=== PATIENT | female | born 1985 | race Caucasian/White ===

== ENCOUNTER 2020-11-16 11:03 | Emergency (ER) | payer SELFPAY ==
[2020-11-16 12:02] LABS: #Basophils 0.1 thou/uL (0.0-0.2); #Eosinphils 0.1 thou/uL (0.0-0.7); #Lymphocytes 1.6 thou/uL (1.20-3.40); #Monocytes 0.9 thou/uL (0.11-0.59); #Neutrophils 11.1 thou/uL (1.40-6.50); %Basophils 0.8 % (0.0-1.0); %Eosinophils 0.4 % (0.0-10.0); %Lymphocytes 11.8 % (21.0-51.0); %Monocytes 6.4 % (0.0-10.0); %Neutrophils 80.6 % (42.0-75.0); Hemoglobin 12.7 g/dL (12.0-16.0); Mean Corpuscular HGB CONC 31.4 g/dL (32.0-36.0); Mean Corpuscular Hemoglobin 27.9 pg (27.0-31.0); Mean Corpuscular Volume 88.9 fL (78.0-98.0); Platelet Count 363 thou/uL (130-400); RBC Distribution Width 12.3 % (11.5-14.5); Red Blood Cell (RBC) Count 4.54 mill/uL (4.20-5.40); White Blood Cell (WBC) Count 13.8 thou/uL (4.8-10.8)
[2020-11-16 12:05] LABS: Pregnancy Test - Urine (BHCG) Negative (Negative); Pregu Control Background? CLEAR/WHITE (CLR/WHITE); Pregu Control Bar Appear? YES (CONTROL BAR); Specific Gravity 1.027 (1.002-1.036)
[2020-11-16 12:06] LABS: Bilirubin Small (Negative); Blood, Urine Large (Negative); Clarity Cloudy (Clear); Glucose, Urine (Dipstick) Negative (Negative); Ketone, Urine 40 mg/dL (Negative); Leukocyte Large (Negative); Nitrite Positive (Negative); Protein, Urine (Dipstick) > or equal to 300 mg/dL (Neg-Trace); Specific Gravity, Urine 1.027 (1.002-1.036)
[2020-11-16 12:12] LABS: WBC/HPF Greater Than 50 HPF (0-3)
[2020-11-16 12:13] LABS: Bacteria/HPF 4+ HPF (None Seen); RBC/HPF Greater than 50 HPF (0-3)
[2020-11-16 12:18] LABS: ALT (SGPT) 12 U/L (8-55); AST (SGOT) 14 U/L (5-34); Albumin 4.1 g/dL (3.5-5.0); Alkaline Phosphatase 74 U/L (40-110); Anion Gap 16 mmol/L (10-20); BUN (Urea Nitrogen) 10 mg/dL (7.0-18.7); Bilirubin, Total 0.5 mg/dL (0.2-1.2); CRP (Inflammatory) 12.46 mg/dL (= or < 0.5); Calc. Creatinine Clearance 0 mL/min (70-130); Calcium 9.2 mg/dL (7.8-10.44); Carbon Dioxide 23 mmol/L (22-29); Chloride 104 mmol/L (98-107); Globulin 3.6 g/dL (2.4-3.5); Glucose 99 mg/dL (70-105); Protein, Total 7.7 g/dL (6.0-8.3); Sodium 139 mmol/L (136-145)
[2020-11-16 12:22] LABS: Amphetamine Not Detected (NotDetected); Barbiturates Screen Not Detected (NotDetected); Benzodiazepine Screen Not Detected (NotDetected); Cocaine Metabolite Screen Not Detected (NotDetected); Medtox Control Line Valid? VALID (VALID); Methadone Not Detected (NotDetected); Methamphetamine Not Detected (NotDetected); Opiate Screen Detected (NotDetected); Oxycodone Screen Not Detected (NotDetected); Phencyclidine (PCP) Not Detected (NotDetected); THC/Cannabinoid Screen Not Detected (NotDetected); Tricyclic Screen Not Detected (NotDetected)
[2020-11-16] MEDS ORDERED: Lidocaine 1% 20 ML MDV ONE (12:29)
[2020-11-16] MEDS ORDERED: cefTRIAXone\\ROCEPHIN 1 GM VIAL ONE (12:29)
== END 2020-11-16 13:05 | disposition home or self-care (01) ==
LOC: MADERS 11:03
DX: N12 Tubulo-interstitial nephritis, not specified as acute or chronic (principal); R10.11 Right upper quadrant pain; F17.210 Nicotine dependence, cigarettes, uncomplicated
CPT/HCPCS: 36415; 80053; 80306; 81003; 81015; 81025; 82550; 85025; 86140; 96372; 99284; J0696

== ENCOUNTER 2020-12-22 18:31 | Emergency (ER) | payer SELFPAY ==
[2020-12-22 18:53] LABS: Bilirubin Negative (Negative); Blood, Urine Large (Negative); Clarity Cloudy (Clear); Glucose, Urine (Dipstick) Negative (Negative); Ketone, Urine Negative (Negative); Leukocyte Large (Negative); Nitrite Positive (Negative); Protein, Urine (Dipstick) > or equal to 300 mg/dL (Neg-Trace); Urobilinogen 0.2 mg/dL (Less than 2); pH, Urine 6.5 (5.0-9.0)
[2020-12-22 18:56] LABS: Bacteria/HPF 4+ HPF (None Seen); Pregnancy Test - Urine (BHCG) Negative (Negative); Pregu Control Background? CLEAR/WHITE (CLR/WHITE); Pregu Control Bar Appear? YES (CONTROL BAR); RBC/HPF Greater than 50 HPF (0-3); WBC/HPF Greater Than 50 HPF (0-3)
[2020-12-22] MEDS ORDERED: Lidocaine 1% 20 ML MDV ONE (19:06)
[2020-12-22] MEDS ORDERED: cefTRIAXone\\ROCEPHIN 1 GM VIAL ONE (19:06)
== END 2020-12-22 19:36 | disposition home or self-care (01) ==
LOC: MADERS 18:31
DX: N30.00 Acute cystitis without hematuria (principal); F17.210 Nicotine dependence, cigarettes, uncomplicated
CPT/HCPCS: 81003; 81015; 81025; 87077; 87086; 96372; 99283; J0696

== ENCOUNTER 2021-04-10 20:21 | Emergency (ER) | payer SELFPAY ==
[2021-04-10 20:46] LABS: Pregnancy Test - Urine (BHCG) Negative (Negative); Pregu Control Background? CLEAR/WHITE (CLR/WHITE); Pregu Control Bar Appear? YES (CONTROL BAR)
[2021-04-10 20:49] LABS: Bilirubin Negative (Negative); Blood, Urine Large (Negative); Clarity Clear (Clear); Glucose, Urine (Dipstick) Negative (Negative); Ketone, Urine Negative (Negative); Leukocyte Large (Negative); Nitrite Positive (Negative); Protein, Urine (Dipstick) > or equal to 300 mg/dL (Neg-Trace); RBC/HPF Greater than 50 HPF (0-3); Urobilinogen 0.2 mg/dL (Less than 2); WBC/HPF Greater than 50 HPF (0-3)
[2021-04-10 20:50] LABS: Bacteria/HPF 3+ HPF (None Seen)
[2021-04-10] MEDS ORDERED: cefTRIAXone\\ROCEPHIN 1 GM VIAL ONE (21:05)
[2021-04-10] MEDS ORDERED: Lidocaine 1% 20 ML MDV ONE (21:05)
== END 2021-04-10 21:32 | disposition home or self-care (01) ==
LOC: MADERS 20:21
DX: N39.0 Urinary tract infection, site not specified (principal); F17.210 Nicotine dependence, cigarettes, uncomplicated; Z87.442 Personal history of urinary calculi
CPT/HCPCS: 81003; 81015; 81025; 96372; 99283; J0696

== ENCOUNTER 2021-05-14 18:31 | Emergency (ER) | payer SELFPAY ==
[2021-05-14 19:05] LABS: Bilirubin Moderate (Negative); Blood, Urine Large (Negative); Glucose, Urine (Dipstick) 100 mg/dL (Negative); Ketone, Urine Negative (Negative); Leukocyte Large (Negative); Nitrite Positive (Negative); Protein, Urine (Dipstick) > or equal to 300 mg/dL (Neg-Trace); pH, Urine 5.5 (5.0-9.0)
[2021-05-14 19:06] LABS: Clarity Cloudy (Clear); Specific Gravity, Urine 1.033 (1.002-1.036)
[2021-05-14 19:07] LABS: Bacteria/HPF 1+ HPF (None Seen); RBC/HPF Greater than 50 HPF (0-3); Trichomonas/HPF 1+ HPF (None Seen); WBC/HPF 21-50 HPF (0-3)
[2021-05-14] MEDS ORDERED: metroNIDAZOLE 250 MG TAB ONE (19:37)
== END 2021-05-14 19:42 | disposition home or self-care (01) ==
LOC: MADERS 18:31
DX: N30.00 Acute cystitis without hematuria (principal); A59.01 Trichomonal vulvovaginitis; F17.210 Nicotine dependence, cigarettes, uncomplicated; Z87.442 Personal history of urinary calculi
CPT/HCPCS: 81003; 81015; 87086; 99283

== ENCOUNTER 2021-11-30 17:27 | Emergency (ER) | payer BC, SELFPAY ==
[2021-11-30 18:16] LABS: Clarity Cloudy (Clear)
[2021-11-30 18:19] LABS: Leukocyte Large (Negative); Nitrite Positive (Negative); Protein, Urine (Dipstick) 100 mg/dL (Neg-Trace); Specific Gravity, Urine 1.025 (1.005-1.030); pH, Urine 7.5 (5.0-9.0)
[2021-11-30 18:20] LABS: Bacteria/HPF 2+ HPF (None Seen); Bilirubin Negative (Negative); Blood, Urine Large (Negative); Glucose, Urine (Dipstick) Negative (Negative); Ketone, Urine Negative (Negative); Urobilinogen 0.2 mg/dL (Less than 2); WBC/HPF Greater Than 50 HPF (0-3)
[2021-11-30] MEDS ORDERED: Cephalexin 500 MG CAP ONE (18:32)
== END 2021-11-30 18:39 | disposition home or self-care (01) ==
LOC: MADERS 17:27
DX: N39.0 Urinary tract infection, site not specified (principal); F17.210 Nicotine dependence, cigarettes, uncomplicated; G89.29 Other chronic pain; M54.50 Low back pain, unspecified; Z87.442 Personal history of urinary calculi
CPT/HCPCS: 81003; 81015; 99283

== ENCOUNTER 2022-02-07 19:45 | Emergency (ER) | payer BC ==
[2022-02-07 20:07] LABS: Bilirubin Negative (Negative); Blood, Urine Large (Negative); Clarity Cloudy (Clear); Glucose, Urine (Dipstick) Negative (Negative); Ketone, Urine Negative (Negative); Leukocyte Large (Negative); Nitrite Positive (Negative); Protein, Urine (Dipstick) > or equal to 300 mg/dL (Neg-Trace); Specific Gravity, Urine 1.025 (1.005-1.030); Urobilinogen 0.2 mg/dL (Less than 2)
[2022-02-07 20:12] LABS: Bacteria/HPF 1+ HPF (None Seen); Pregnancy Test - Urine (BHCG) Negative (Negative); Pregu Control Background? CLEAR/WHITE (CLR/WHITE); Pregu Control Bar Appear? YES (CONTROL BAR); RBC/HPF Greater than 50 HPF (0-3); Specific Gravity 1.025 (1.002-1.036); WBC/HPF 21-50 HPF (0-3)
[2022-02-07] MEDS ORDERED: Ciprofloxacin 500 MG TAB ONE (20:56)
== END 2022-02-07 21:00 | disposition home or self-care (01) ==
LOC: MADERS 19:45
DX: N30.91 Cystitis, unspecified with hematuria (principal); F17.210 Nicotine dependence, cigarettes, uncomplicated
CPT/HCPCS: 81003; 81015; 81025; 87086; 99283

== ENCOUNTER 2022-05-10 19:44 | Emergency (ER) | payer BC ==
[2022-05-10] MEDS ORDERED: Clindamycin 150 MG CAP ONE (20:56)
[2022-05-10] MEDS ORDERED: Cephalexin 500 MG CAP ONE (20:56)
== END 2022-05-10 20:59 | disposition home or self-care (01) ==
LOC: MADERS 19:44
DX: T81.41XA Infection following a procedure, superficial incisional surgical site, initial encounter (principal); F17.210 Nicotine dependence, cigarettes, uncomplicated
CPT/HCPCS: 87070; 87205; 99283

== ENCOUNTER 2022-06-14 13:18 | Emergency (ER) | payer BC | END 2022-06-14 14:00 | disposition home or self-care (01) | LOC: MADERS 13:18 | DX: U07.1 COVID-19 (principal); F17.210 Nicotine dependence, cigarettes, uncomplicated; Z87.442 Personal history of urinary calculi | CPT/HCPCS: 99283; U0003; U0005 ==

== ENCOUNTER 2023-05-19 05:45 | Emergency (ER) | payer BC ==
[2023-05-19] MEDS ORDERED: Ketorolac Tromethamine 30 MG/ML VIAL ONE (06:13)
[2023-05-19] MEDS ORDERED: Morphine 2 MG/ML VIAL ONE ×2 (06:13→10:57)
[2023-05-19] MEDS ORDERED: Sodium Chloride 0.9% 1,000 ML ONE ×2 (06:13→07:27)
[2023-05-19] MEDS ORDERED: Ondansetron PF 4 MG/2 ML Vial ONE ×2 (06:13→10:27)
[2023-05-19 06:17] LABS: Pregnancy Test - Urine (BHCG) Negative (Negative); Pregu Control Background? CLEAR/WHITE (CLR/WHITE); Pregu Control Bar Appear? YES (CONTROL BAR)
[2023-05-19 06:18] LABS: Bacteria/HPF 1+ HPF (None Seen); Bilirubin Negative (Negative); Blood, Urine Small (Negative); CAUTI Indications for Culture Pelvic or flank pain; Clarity Clear (Clear); Glucose, Urine (Dipstick) Negative (Negative); Ketone, Urine Negative (Negative); Leukocyte Moderate (Negative); Nitrite Negative (Negative); Protein, Urine (Dipstick) 30 mg/dL (Neg-Trace); RBC/HPF 0-3 HPF (0-3); Squamous Epithelial 0-3 HPF (0-3); Urobilinogen 0.2 mg/dL (Less than 2)
[2023-05-19 06:19] LABS: Urine Culture Reflex No No
[2023-05-19 06:31] LABS: Hemoglobin 13.8 g/dL (12.0-16.0); Lymphocytes 9 % (21-51); MDiff Complete? YES; Mean Corpuscular HGB CONC 33.4 g/dL (32.0-36.0); Mean Corpuscular Hemoglobin 28.9 pg (27.0-31.0); Mean Corpuscular Volume 86.6 fl (78.0-98.0); Mean Platelet Volume 8.6 fL (7.4-10.4); Monocytes 5 % (0-10); Neutrophil 86 % (42-75); Platelet Adequacy Comment Appears Adequate; Platelet Count 381 10x3/uL (130-400); RBC Distribution Width 13.4 % (11.5-14.5); Red Blood Cell (RBC) Count 4.77 mill/uL (4.20-5.40); Toxic Granulation SLIGHT; White Blood Cell (WBC) Count 24.7 10x3/uL (4.8-10.8)
[2023-05-19 06:41] LABS: ALT (SGPT) 18 U/L (8-55); AST (SGOT) 23 U/L (5-34); Albumin 4.4 g/dL (3.5-5.0); Alkaline Phosphatase 92 U/L (40-110); Anion Gap 14 mmol/L (10-20); BUN (Urea Nitrogen) 19 mg/dL (7.0-18.7); Bilirubin, Total 0.2 mg/dL (0.2-1.2); Calc. Creatinine Clearance 0 mL/min (70-130); Calcium 9.7 mg/dL (7.8-10.44); Carbon Dioxide 23 mmol/L (22-29); Chloride 104 mmol/L (98-107); Estimated GFR 46; Globulin 3.5 g/dL (2.4-3.5); Glucose 112 mg/dL (70-105); Potassium 4.3 mmol/L (3.5-5.1); Protein, Total 7.9 g/dL (6.0-8.3); Sodium 137 mmol/L (136-145)
[2023-05-19] MEDS ORDERED: cefTRIAXone (ROCEPHIN) 1 GM VIAL ONE (06:45)
[2023-05-19] MEDS ORDERED: Sodium Chloride 0.9% 100 ML ONE ×2 (06:45→07:21)
[2023-05-19] MEDS ORDERED: Gentamicin 80 MG/2 ML VIAL ONE ×2 (07:06→07:21)
[2023-05-19 08:18] LABS: INR-International Normal Ratio 0.9; Prothrombin Time 12.3 sec (12.0-14.7)
[2023-05-19 08:19] LABS: PTT 24.8 sec (22.9-36.1)
[2023-05-19] MEDS ORDERED: Lactated Ringer's 1,000 ML ONE (08:19)
[2023-05-19] MEDS ORDERED: Nicotine 7 MG PATCH ONE (14:00)
== END 2023-05-19 14:57 | disposition short-term general hospital (02) ==
LOC: MADERS 05:45
DX: N12 Tubulo-interstitial nephritis, not specified as acute or chronic (principal); N17.9 Acute kidney failure, unspecified; N13.2 Hydronephrosis with renal and ureteral calculous obstruction; F17.210 Nicotine dependence, cigarettes, uncomplicated
CPT/HCPCS: 74176; 80053; 81001; 81025; 83605; 85025; 85610; 85730; 87040; 96361; 96365; 96367; 96375; 96376; J0696; J1580; J1885; J2272; J2405; J3490; J7050; J7120

== ENCOUNTER 2024-05-06 14:46 | Emergency (ER) | payer BC | END 2024-05-06 15:14 | disposition home or self-care (01) | LOC: MADERS 14:46 | DX: L73.9 Follicular disorder, unspecified (principal); F17.290 Nicotine dependence, other tobacco product, uncomplicated; Z55.6 Problems related to health literacy | CPT/HCPCS: 99283 ==